=== PATIENT | female | born 1975 | race Caucasian/White ===

== ENCOUNTER → 2021-04-10 09:35 | Outpatient (BNVA) | payer BC, SELFPAY | PROVIDERS: PCP Nurse Practitioner Family; Visit Provider Internal Medicine | DX: L93.0 Discoid lupus erythematosus (principal); R76.8 Other specified abnormal immunological findings in serum; L65.9 Nonscarring hair loss, unspecified; Z11.59 Encounter for screening for other viral diseases | CPT/HCPCS: 36415; 80053; 81003; 85025; 85651; 86140; 86160; 86704; 86803; 87340; 99204 ==

== ENCOUNTER → 2021-07-06 09:03 | Outpatient (BNVA) | payer BC, SELFPAY | PROVIDERS: PCP Nurse Practitioner Family; Visit Provider Internal Medicine | DX: L93.0 Discoid lupus erythematosus (principal); R70.0 Elevated erythrocyte sedimentation rate; R76.8 Other specified abnormal immunological findings in serum; E03.9 Hypothyroidism, unspecified; R53.83 Other fatigue; G47.00 Insomnia, unspecified | CPT/HCPCS: 81003; 99214 ==

== ENCOUNTER 2021-11-30 09:39 | Outpatient (CLI) | payer BC, SELFPAY ==
[2021-11-30 10:33] LABS: Estmated Average Glucose 126
[2021-11-30 10:41] LABS: Alanine Aminotransferase 15 U/L (0-33); Albumin Level 4.6 g/dL (3.5-5.2); Alkaline Phosphatase 44 IU/L (35-105); Anion Gap 17.4 (5-19); Aspartate Amino Transferase 15 U/L (0-32); Blood Urea Nitrogen 12 mg/dL (6-20); Calcium 8.9 mg/dL (8.5-10.5); Carbon Dioxide 21 mmol/L (22-29); Chloride 103 mmol/L (98-107); Chol HDL Ratio 5.07 mg/dL (0.0-4.40); Cholesterol 309 mg/dL (0-200); Free T4 Free Thyroxine 1.37 ng/dL (0.82-1.77); Globulin 2.9 g/dL (1.3-4.6); Glomerular Filtration Rate 90.5 mL/min (90-130); Glucose 88 mg/dL (65-115); HDL Cholesterol 61 mg/dL (60-100); LDL Cholesterol Calculated 223 mg/dL (50-129); LDL HDL Ratio 3.66 RATIO (0.00-3.22); Osmolality Calculated 283 mOsm/kg (285-295); Potassium 4.4 mmol/L (3.5-5.1); Sodium 137 mmol/L (136-145); Thyroid Stimulating Hormone 3.61 uIU/mL (0.27-4.20); Total Bilirubin 0.7 mg/dL (0.15-1.2); Total Protein 7.5 g/dL (6.6-8.7); Triglycerides 127 mg/dL (0-150)
== END 2021-11-30 09:40 | disposition home or self-care (01) ==
PROVIDERS: PCP Nurse Practitioner Family; Visit Provider Internal Medicine
DX: E03.8 Other specified hypothyroidism (principal); E06.3 Autoimmune thyroiditis; E11.9 Type 2 diabetes mellitus without complications; R68.89 Other general symptoms and signs
CPT/HCPCS: 36415; 80053; 80061; 83036; 84439; 84443

== ENCOUNTER 2022-02-08 08:10 | Outpatient (CLI) | payer BC, SELFPAY ==
[2022-02-08 09:02] LABS: Add Urine Microscopic? NO; Charge for UA Resulting for Rev
[2022-02-08 09:06] LABS: Bilirubin Urine Neg (Negative); Blood Urine Neg (Negative); Glucose Urine UA Norm (Normal); Ketones Urine Negative (Negative); Leukocyte Esterase Urine Negative (Negative); Nitrate Urine Negative (Negative); Protein Urine Neg (Negative); Specific Gravity, Urine 1.005 (1.005-1.030); Urine Appearance Clear (CLEAR); Urine Color Yellow (Yellow); Urobilinogen Urine Norm (Negative); pH Urine 6.5 (5-7)
[2022-02-08 09:08] LABS: Basophils % 0.4 %; Hematocrit 37.8 % (37.0-47.0); Hemoglobin 12.5 g/dL (11.5-15.3); Lymphocytes # 1.8 10^3/uL (0.8-4.8); Lymphocytes % 32.6 %; Mean Corpuscular HGB Conc 33.1 g/dL (30.0-36.0); Mean Corpuscular Hemoglobin 28.7 pg (28.0-34.0); Mean Corpuscular Volume 86.9 fl (81-99); Mean Platelet Volume 9.6 fL (7.4-10.4); Monocytes # 0.6 10^3/uL (0.2-0.9); Monocytes % 10.4 %; Neutrophils # 3.05 10^3/uL (1.8-7.7); Neutrophils % 56.4 %; Nucleated Red Blood Cells % 0 %; Platelet Count 235 10^3/cmm (130-400); Red Blood Count 4.35 10^6/uL (4.1-5.3); Red Cell Distribution Width 11.7 % (12.1-15.1); White Blood Count 5.4 10^3/uL (4.0-10.0)
[2022-02-08 09:33] LABS: Alanine Aminotransferase 16 U/L (0-33); Albumin Level 4.7 g/dL (3.5-5.2); Alkaline Phosphatase 38 IU/L (35-105); Anion Gap 14.5 (5-19); Aspartate Amino Transferase 20 U/L (0-32); Blood Urea Nitrogen 16 mg/dL (6-20); Calcium 8.6 mg/dL (8.5-10.5); Carbon Dioxide 25 mmol/L (22-29); Chloride 97 mmol/L (98-107); Complement C3 145 mg/dL (90-180); Erythrocyte Sedimentation Rate 27 mm/hr (0-15); Globulin 2.7 g/dL (1.3-4.6); Glomerular Filtration Rate 90.5 mL/min (90-130); Glucose 81 mg/dL (65-115); Osmolality Calculated 274 mOsm/kg (285-295); Potassium 4.5 mmol/L (3.5-5.1); Sodium 132 mmol/L (136-145); Total Bilirubin 0.7 mg/dL (0.15-1.2); Total Protein 7.4 g/dL (6.6-8.7)
== END 2022-02-08 08:11 | disposition home or self-care (01) ==
LOC: LAB 08:13
PROVIDERS: PCP Nurse Practitioner Family; Visit Provider Internal Medicine
DX: E03.8 Other specified hypothyroidism (principal); E06.3 Autoimmune thyroiditis; L93.0 Discoid lupus erythematosus; R76.8 Other specified abnormal immunological findings in serum
CPT/HCPCS: 80053; 81003; 82533; 85025; 85651; 86140; 86160

== ENCOUNTER 2022-02-11 15:56 | Outpatient (CLI) | payer BC, SELFPAY ==
[2022-02-11 19:05] LABS: Estmated Average Glucose 103; Free T4 Free Thyroxine 1.65 ng/dL (0.82-1.77); Hemoglobin A1C 5.2 % (4.0-6.0); Thyroid Stimulating Hormone 1.18 uIU/mL (0.27-4.20)
[2022-02-13 14:27] LABS: 25 Hydroxy Vitamin D 86 ng/mL (30-100)
== END 2022-02-11 15:57 | disposition home or self-care (01) ==
PROVIDERS: PCP Nurse Practitioner Family; Visit Provider Internal Medicine
DX: E03.8 Other specified hypothyroidism (principal); E06.3 Autoimmune thyroiditis; E11.9 Type 2 diabetes mellitus without complications
CPT/HCPCS: 36415; 82306; 83036; 84439; 84443

== ENCOUNTER 2022-05-07 08:38 | Outpatient (CLI) | payer BC, SELFPAY ==
--- NOTE | 2022-05-07 09:30 | US_ITS ---
WS: [id number] THYROID ULTRASOUND HISTORY: E03.8 - Other specified hypothyroidism COMPARISON: None available. Right lobe: 1.6 cm x 1.7 cm x 4.3 cm (w x ap x l). Volume: 5.9 cm3. Very mildly prominent gland. Coarsened echotexture without significant increased vascularity. No nodu les are identified. Left lobe: 1.2 cm x 1.7 cm x 4.4 cm (w x ap x l). Volume: 4.5 cm3. Mildly prominent gland. Coarse echotexture without a discrete nodule. No increased vascularity. Isthmus: 0.5 cm. US/US thyroid [id number] IMPRESSION: 1. Mild coarsened echotexture throughout the entire gland with no nodule. No i ncreased vascularity. 2. 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
[2022-05-07 09:51] LABS: Basophils % 0.4 %; Hematocrit 34.2 % (37.0-47.0); Hemoglobin 11.6 g/dL (11.5-15.3); Lymphocytes # 1.6 10^3/uL (0.8-4.8); Lymphocytes % 30.6 %; Mean Corpuscular HGB Conc 33.9 g/dL (30.0-36.0); Mean Corpuscular Hemoglobin 29.3 pg (28.0-34.0); Mean Corpuscular Volume 86.4 fl (81-99); Monocytes # 0.6 10^3/uL (0.2-0.9); Monocytes % 12.2 %; Neutrophils # 2.86 10^3/uL (1.8-7.7); Neutrophils % 56.4 %; Nucleated Red Blood Cells % 0 %; Platelet Count 237 10^3/cmm (130-400); Red Blood Count 3.96 10^6/uL (4.1-5.3); White Blood Count 5.1 10^3/uL (4.0-10.0)
[2022-05-07 09:56] LABS: Erythrocyte Sedimentation Rate 16 mm/hr (0-15)
[2022-05-07 10:26] LABS: Alanine Aminotransferase 40 U/L (0-33); Albumin Level 4.3 g/dL (3.5-5.2); Alkaline Phosphatase 44 IU/L (35-105); Anion Gap 14.2 (5-19); Aspartate Amino Transferase 32 U/L (0-32); Blood Urea Nitrogen 17 mg/dL (6-20); Calcium 9.8 mg/dL (8.5-10.5); Carbon Dioxide 28 mmol/L (22-29); Chloride 101 mmol/L (98-107); Globulin 2.8 g/dL (1.3-4.6); Glomerular Filtration Rate 108.1 mL/min (90-130); Glucose 108 mg/dL (65-115); Osmolality Calculated 288 mOsm/kg (285-295); Potassium 5.2 mmol/L (3.5-5.1); Sodium 138 mmol/L (136-145); Total Bilirubin 0.8 mg/dL (0.15-1.2); Total Protein 7.1 g/dL (6.6-8.7)
[2022-05-07 10:32] LABS: Chol HDL Ratio 2.96 mg/dL (0.0-4.40); Cholesterol 157 mg/dL (0-200); Free T4 Free Thyroxine 1.61 ng/dL (0.82-1.77); HDL Cholesterol 53 mg/dL (60-100); LDL Cholesterol Calculated 82 mg/dL (50-129); LDL HDL Ratio 1.55 RATIO (0.00-3.22); Thyroid Stimulating Hormone 0.25 uIU/mL (0.27-4.20); Triglycerides 109 mg/dL (0-150)
[2022-05-07 11:04] LABS: 25 Hydroxy Vitamin D 87 ng/mL (30-100)
[2022-05-08 14:53] LABS: Thyroglobulin AB 7 IU/mL (< or = 1)
[2022-05-09 16:39] LABS: Thyroid Peroxidase Antobodies 13 IU/mL (<9)
== END 2022-05-07 08:39 | disposition home or self-care (01) ==
PROVIDERS: Internal Medicine; PCP Nurse Practitioner Family; Referring Provider Internal Medicine; Visit Provider Nurse Practitioner Family
DX: E03.8 Other specified hypothyroidism (principal); E06.3 Autoimmune thyroiditis; L93.0 Discoid lupus erythematosus; R76.8 Other specified abnormal immunological findings in serum; Z79.899 Other long term (current) drug therapy
CPT/HCPCS: 36415; 76536; 80053; 80061; 82306; 84439; 84443; 85025; 85651; 86140; 86376; 86800

== ENCOUNTER 2022-08-21 07:53 | Outpatient (CLI) | payer BC, SELFPAY ==
[2022-08-21 09:09] LABS: Chol HDL Ratio 2.53 mg/dL (0.0-4.40); Cholesterol 129 mg/dL (0-200); Free T4 Free Thyroxine 1.42 ng/dL (0.82-1.77); HDL Cholesterol 51 mg/dL (60-100); LDL Cholesterol Calculated 63 mg/dL (50-129); LDL HDL Ratio 1.24 RATIO (0.00-3.22); T3 Free 6.7 PG/ML (2.0-4.4); Thyroid Stimulating Hormone 0.03 uIU/mL (0.27-4.20); Triglycerides 73 mg/dL (0-150)
== END 2022-08-21 07:54 | disposition home or self-care (01) ==
PROVIDERS: PCP Nurse Practitioner Family; Visit Provider Nurse Practitioner Family
DX: E03.8 Other specified hypothyroidism (principal); E06.3 Autoimmune thyroiditis
CPT/HCPCS: 36415; 80061; 84439; 84443; 84481

== ENCOUNTER 2022-10-04 07:36 | Outpatient (CLI) | payer BC, SELFPAY ==
[2022-10-04 08:43] LABS: Thyroid Stimulating Hormone 4.67 uIU/mL (0.27-4.20)
== END 2022-10-04 07:37 | disposition home or self-care (01) ==
PROVIDERS: PCP Nurse Practitioner Family; Visit Provider Nurse Practitioner Family
DX: E03.8 Other specified hypothyroidism (principal); E06.3 Autoimmune thyroiditis
CPT/HCPCS: 84443

== ENCOUNTER 2022-12-06 09:00 | Outpatient (CLI) | payer BC, SELFPAY ==
[2022-12-06 09:48] LABS: Estmated Average Glucose 134; Hemoglobin A1C 6.3 % (4.0-6.0)
[2022-12-06 09:51] LABS: Alanine Aminotransferase 17 U/L (0-33); Albumin Level 4.4 g/dL (3.5-5.2); Alkaline Phosphatase 48 U/L (35-105); Anion Gap 16.1 (5-19); Aspartate Amino Transferase 18 U/L (0-32); Blood Urea Nitrogen 14 mg/dL (6-20); Calcium 9.7 mg/dL (8.5-10.5); Carbon Dioxide 24 mmol/L (22-29); Chloride 99 mmol/L (98-107); Chol HDL Ratio 2.73 mg/dL (0.0-4.40); Cholesterol 142 mg/dL (0-200); Free T4 Free Thyroxine 1.63 ng/dL (0.82-1.77); Globulin 3.1 g/dL (1.3-4.6); Glomerular Filtration Rate 77.2 mL/min (90-130); Glucose 118 mg/dL (65-115); HDL Cholesterol 52 mg/dL (60-100); LDL Cholesterol Calculated 76 mg/dL (50-129); LDL HDL Ratio 1.46 RATIO (0.00-3.22); Osmolality Calculated 282 mOsm/kg (285-295); Potassium 4.1 mmol/L (3.5-5.1); Sodium 135 mmol/L (136-145); Thyroid Stimulating Hormone 0.95 uIU/mL (0.27-4.20); Total Bilirubin 0.7 mg/dL (0.15-1.2); Total Protein 7.5 g/dL (6.6-8.7); Triglycerides 71 mg/dL (0-150)
[2022-12-06 11:04] LABS: Creatinine Urine, Random 47 mg/dL (28-217); Microalbum Creatinine Ratio Ur 21 mg/dL (0-20); Microalbumin Random Urine 1 ug/dL (0-20)
[2022-12-07 06:38] LABS: T3 Total 100 ng/dL (76-181)
== END 2022-12-06 09:01 | disposition home or self-care (01) ==
LOC: LAB 09:04
PROVIDERS: PCP Nurse Practitioner Family; Visit Provider Internal Medicine
DX: E03.8 Other specified hypothyroidism (principal); E06.3 Autoimmune thyroiditis; E11.9 Type 2 diabetes mellitus without complications; E66.3 Overweight
CPT/HCPCS: 36415; 80053; 80061; 82044; 83036; 84439; 84443; 84480

== ENCOUNTER 2023-03-11 10:03 | Outpatient (CLI) | payer BC, SELFPAY ==
[2023-03-11 11:02] LABS: Alanine Aminotransferase 15 U/L (0-33); Albumin Level 4.4 g/dL (3.5-5.2); Alkaline Phosphatase 39 U/L (35-105); Anion Gap 14.2 (5-19); Aspartate Amino Transferase 17 U/L (0-32); Blood Urea Nitrogen 16 mg/dL (6-20); Calcium 8.9 mg/dL (8.5-10.5); Carbon Dioxide 23 mmol/L (22-29); Chloride 99 mmol/L (98-107); Chol HDL Ratio 3.24 mg/dL (0.0-4.40); Cholesterol 162 mg/dL (0-200); Globulin 3.1 g/dL (1.3-4.6); Glomerular Filtration Rate 77.2 mL/min (90-130); Glucose 96 mg/dL (65-115); HDL Cholesterol 50 mg/dL (60-100); LDL Cholesterol Calculated 93 mg/dL (50-129); LDL HDL Ratio 1.86 RATIO (0.00-3.22); Osmolality Calculated 275 mOsm/kg (285-295); Potassium 4.2 mmol/L (3.5-5.1); Sodium 132 mmol/L (136-145); Total Bilirubin 0.6 mg/dL (0.15-1.2); Total Protein 7.5 g/dL (6.6-8.7); Triglycerides 96 mg/dL (0-150)
[2023-03-11 11:11] LABS: Creatinine Urine, Random 35 mg/dL (28-217); Microalbum Creatinine Ratio Ur 29 mg/dL (0-20); Microalbumin Random Urine 1 ug/dL (0-20)
[2023-03-11 11:44] LABS: Estmated Average Glucose 114; Hemoglobin A1C 5.6 % (4.0-6.0)
== END 2023-03-11 10:04 | disposition home or self-care (01) ==
PROVIDERS: PCP Nurse Practitioner Family; Visit Provider Internal Medicine
DX: E11.9 Type 2 diabetes mellitus without complications (principal)
CPT/HCPCS: 36415; 80053; 80061; 82044; 83036

== ENCOUNTER 2023-06-13 08:48 | Outpatient (CLI) | payer BC, SELFPAY ==
[2023-06-13 10:54] LABS: Creatinine Urine, Random 85 mg/dL (28-217); Microalbumin Random Urine 4 ug/dL (0-20)
[2023-06-13 10:55] LABS: Microalbum Creatinine Ratio Ur 47 mg/dL (0-20)
[2023-06-13 11:41] LABS: Estmated Average Glucose 103; Hemoglobin A1C 5.2 % (4.0-6.0)
[2023-06-13 11:58] LABS: Alanine Aminotransferase 16 U/L (0-33); Albumin Level 4.3 g/dL (3.5-5.2); Alkaline Phosphatase 38 U/L (35-105); Anion Gap 14.2 (5-19); Aspartate Amino Transferase 19 U/L (0-32); Blood Urea Nitrogen 9 mg/dL (6-20); Calcium 9.7 mg/dL (8.5-10.5); Carbon Dioxide 26 mmol/L (22-29); Chloride 96 mmol/L (98-107); Chol HDL Ratio 2.79 mg/dL (0.0-4.40); Cholesterol 131 mg/dL (0-200); Globulin 3.1 g/dL (1.3-4.6); Glomerular Filtration Rate 107.6 mL/min (90-130); Glucose 64 mg/dL (65-115); HDL Cholesterol 47 mg/dL (60-100); LDL Cholesterol Calculated 73 mg/dL (50-129); LDL HDL Ratio 1.55 RATIO (0.00-3.22); Osmolality Calculated 271 mOsm/kg (285-295); Potassium 4.2 mmol/L (3.5-5.1); Sodium 132 mmol/L (136-145); Thyroid Stimulating Hormone 0.79 uIU/mL (0.27-4.20); Total Bilirubin 1.1 mg/dL (0.15-1.2); Total Protein 7.4 g/dL (6.6-8.7); Triglycerides 54 mg/dL (0-150)
[2023-06-13 12:19] LABS: Free T4 Free Thyroxine 2.07 ng/dL (0.82-1.77)
== END 2023-06-13 08:49 | disposition home or self-care (01) ==
PROVIDERS: PCP Nurse Practitioner Family; Visit Provider Internal Medicine
DX: E11.9 Type 2 diabetes mellitus without complications (principal); E03.8 Other specified hypothyroidism; E06.3 Autoimmune thyroiditis; R68.89 Other general symptoms and signs; E78.5 Hyperlipidemia, unspecified; E66.3 Overweight
CPT/HCPCS: 36415; 80053; 80061; 82044; 83036; 84439; 84443

== ENCOUNTER → 2023-06-30 14:37 | Outpatient (BNVA) | payer OTHER, SELFPAY | PROVIDERS: PCP Nurse Practitioner Family; Visit Provider Nurse Practitioner Family | DX: E03.8 Other specified hypothyroidism (principal); E06.3 Autoimmune thyroiditis; E11.9 Type 2 diabetes mellitus without complications; E66.3 Overweight; E78.5 Hyperlipidemia, unspecified; R68.89 Other general symptoms and signs; L93.0 Discoid lupus erythematosus; R76.8 Other specified abnormal immunological findings in serum; N92.6 Irregular menstruation, unspecified; R53.83 Other fatigue | CPT/HCPCS: 82672; 84144; 84403; 84439; 84443; 84480 ==

== ENCOUNTER → 2023-10-08 09:05 | Outpatient (BNVA) | payer OTHER, SELFPAY | PROVIDERS: PCP Nurse Practitioner Family; Visit Provider Internal Medicine | DX: E11.9 Type 2 diabetes mellitus without complications (principal); E03.8 Other specified hypothyroidism; E06.3 Autoimmune thyroiditis; R68.89 Other general symptoms and signs; E78.5 Hyperlipidemia, unspecified; E66.3 Overweight | CPT/HCPCS: 36415; 80053; 80061; 82044; 83036; 84439; 84443 ==

== ENCOUNTER 2023-12-16 09:46 | Outpatient (CLI) | payer OTHER, SELFPAY ==
--- NOTE | 2023-12-16 10:00 | MM_ITS ---
WS: [id number] VIEWS: MLO and CC views both breasts. 3D digital tomosynthesis is also included in this exam. No priors Findings: There was no sign of mass, architectural distortion or suspicious calcification in either breast. The re are scattered areas of fibroglandular density Impression: MM/[place] [id number] BI-RADS: 1-Negative FOLLOW-UP: 1 Year Follow-up This mammogram was also analyzed by the Computer Aided Detection System R2 Imag e [employer].
== END 2023-12-16 09:47 | disposition home or self-care (01) ==
LOC: MOBLMAM 09:54
PROVIDERS: PCP Nurse Practitioner Family; Visit Provider Nurse Practitioner Family
DX: Z12.31 Encounter for screening mammogram for malignant neoplasm of breast (principal); R92.323 Mammographic fibroglandular density, bilateral breasts
CPT/HCPCS: 77063; 77067

== ENCOUNTER → 2024-02-05 07:19 | Outpatient (BNVA) | payer OTHER, SELFPAY | PROVIDERS: PCP Nurse Practitioner Family; Visit Provider Internal Medicine | DX: E11.9 Type 2 diabetes mellitus without complications (principal); E03.8 Other specified hypothyroidism; E06.3 Autoimmune thyroiditis; E78.5 Hyperlipidemia, unspecified; R68.89 Other general symptoms and signs; E66.3 Overweight | CPT/HCPCS: 36415; 80053; 80061; 82044; 83036; 83735; 84439; 84443 ==

== ENCOUNTER 2024-05-28 11:58 | Outpatient (CLI) | payer OTHER, SELFPAY ==
[2024-05-28 13:03] LABS: Creatinine Urine, Random 40 mg/dL (28-217); Microalbum Creatinine Ratio Ur 25 mg/dL (0-20); Microalbumin Random Urine 1 ug/dL (0-20)
[2024-05-28 13:04] LABS: Estmated Average Glucose 100; Hemoglobin A1C 5.1 % (4.0-6.0)
[2024-05-28 13:14] LABS: Alanine Aminotransferase 22 U/L (0-33); Albumin Level 4.3 g/dL (3.5-5.2); Alkaline Phosphatase 41 U/L (35-105); Anion Gap 15.8 (5-19); Aspartate Amino Transferase 26 U/L (0-32); Blood Urea Nitrogen 8 mg/dL (6-20); Calcium 9.5 mg/dL (8.5-10.5); Carbon Dioxide 25 mmol/L (22-29); Chloride 91 mmol/L (98-107); Chol HDL Ratio 2.32 mg/dL (0.0-4.40); Cholesterol 160 mg/dL (0-200); Free T4 Free Thyroxine 1.61 ng/dL (0.82-1.77); Globulin 3.2 g/dL (1.3-4.6); Glomerular Filtration Rate 89.7 mL/min (90-130); Glucose 75 mg/dL (65-115); HDL Cholesterol 69 mg/dL (60-100); LDL Cholesterol Calculated 79 mg/dL (50-129); LDL HDL Ratio 1.14 RATIO (0.00-3.22); Osmolality Calculated 263 mOsm/kg (285-295); Potassium 3.8 mmol/L (3.5-5.1); Sodium 128 mmol/L (136-145); Total Bilirubin 1.1 mg/dL (0.15-1.2); Total Protein 7.5 g/dL (6.6-8.7); Triglycerides 62 mg/dL (0-150)
== END 2024-05-28 11:59 | disposition home or self-care (01) ==
LOC: LAB 12:02
PROVIDERS: PCP Nurse Practitioner Family; Visit Provider Internal Medicine
DX: E11.9 Type 2 diabetes mellitus without complications (principal); E03.8 Other specified hypothyroidism; E06.3 Autoimmune thyroiditis; E78.5 Hyperlipidemia, unspecified
CPT/HCPCS: 36415; 80053; 80061; 82044; 83036; 84439; 84443

== ENCOUNTER → 2024-05-31 12:40 | Outpatient (BNVA) | payer OTHER, SELFPAY | PROVIDERS: PCP Nurse Practitioner Family; Visit Provider Internal Medicine | DX: E87.1 Hypo-osmolality and hyponatremia (principal) | CPT/HCPCS: 36415; 80048 ==

== ENCOUNTER → 2024-12-21 09:30 | Outpatient (BNVA) | payer OTHER, SELFPAY | PROVIDERS: PCP Nurse Practitioner Family; Visit Provider Internal Medicine | DX: E11.9 Type 2 diabetes mellitus without complications (principal); E03.8 Other specified hypothyroidism; E06.3 Autoimmune thyroiditis; R68.89 Other general symptoms and signs; E78.5 Hyperlipidemia, unspecified; E66.3 Overweight; E55.9 Vitamin D deficiency, unspecified | CPT/HCPCS: 80053; 80061; 82044; 82306; 82607; 82746; 83036; 83540; 85025 ==

== ENCOUNTER → 2025-04-07 08:31 | Outpatient (BNVA) | payer OTHER, SELFPAY | PROVIDERS: PCP Nurse Practitioner Family; Visit Provider Nurse Practitioner Family | DX: I10 Essential (primary) hypertension (principal); E78.5 Hyperlipidemia, unspecified; E11.9 Type 2 diabetes mellitus without complications; E03.8 Other specified hypothyroidism; E06.3 Autoimmune thyroiditis | CPT/HCPCS: 80053; 80061; 82043; 83036; 84443 ==

== ENCOUNTER → 2025-10-05 09:01 | Outpatient (BNVA) | payer OTHER, SELFPAY | PROVIDERS: PCP Nurse Practitioner Family; Visit Provider Nurse Practitioner Family | DX: E03.8 Other specified hypothyroidism (principal); E06.3 Autoimmune thyroiditis; E78.2 Mixed hyperlipidemia | CPT/HCPCS: 80053; 80061; 84443 ==